=== PATIENT | male | born 1950 | race Caucasian/White ===

== ENCOUNTER → 2017-08-28 | Outpatient (CLI) | payer OTHER ==
[~2017-08-28] MED LIST: ASPIR 8181 MG PO; ASPIRIN325 PO; BRILINTA90 MG PO; CELEXA20 MG PO; FLOMAX0.4 MG PO; GABAPENTIN 100100 MG PO; IRON325 PO; LIPITOR20 MG PO; LOPRESSOR50 PO; METOPROLOL TART25 MG PO; MIDODRINE HCL 55 M1 PO; NITROGLYCERIN0.4 MG PO; NORCO 5-325 TA1 EACH PO; OMEGA-31000 M1 PO; OXYCODONE HCL 55 MG PO; PLAVIX 75 MG TA75 MG PO; PROSCAR 5MG TABL5 MG PO; PROTONIX40 M4 PO
== END ==
LOC: M.RAD 12:09
DX: M19.041 Primary osteoarthritis, right hand (principal); R22.41 Localized swelling, mass and lump, right lower limb

== ENCOUNTER 2018-03-26 10:31 | Emergency (ER) | payer OTHER ==
[~2018-03-26] VITALS: Ht 177.8 cm; Wt 88.5 kg
[2018-03-26] MEDS ORDERED: NORCO 5-325 TA1 EACH PO (11:58)
[2018-03-26 12:13] VITALS: BP 141/72
== END 2018-03-26 12:14 | disposition home or self-care (01) ==
LOC: M.ERS 10:31
DX: M25.571 Pain in right ankle and joints of right foot (principal); I25.10 Atherosclerotic heart disease of native coronary artery without angina pectoris; G47.30 Sleep apnea, unspecified; J44.9 Chronic obstructive pulmonary disease, unspecified; E78.00 Pure hypercholesterolemia, unspecified; Z88.5 Allergy status to narcotic agent; Z90.49 Acquired absence of other specified parts of digestive tract; Z85.830 Personal history of malignant neoplasm of bone; Z95.5 Presence of coronary angioplasty implant and graft

== ENCOUNTER → 2019-06-17 | Outpatient (CLI) | payer OTHER ==
--- NOTE | 2019-06-19 18:23 | SLEEP ---
[address] [address] SLEEP STUDY REPORT Name: THUY OLSON Room: [facility]#: [id number] Admission: 06/17/19 Attend Phys: Yvan Wen DO Discharge: Date of : 52 Report #: [id number] THIS REPORT FOR: //name// CC: Yvan Wen DO This study has been reviewed in its entirety by a board certified sleep specialist DATE OF SERVICE: 06/17/2019 SLEEP STUDY ATTENDING PHYSICIAN: Yvan Wen DO. The patient is a 68-year-old who weighs 189 pounds with a BMI of 27.1. The patient's Talbott score was 8. The patient underwent diagnostic sleep study performed at [facility]. During the night study, the patient spent 456 minutes in bed and slept for 156 minutes with a low sleep efficiency of 34%. Sleep latency was 63 minutes with absent REM sleep. Sleep architecture showed increased stage 1 and stage 2 sleep with normal slow wave and absent REM sleep. During the night study, the patient had 2 obstructive apneas, no mixed apneas, 1 central apnea and 16 hypopneas. The patient's AHI was 7.3 per hour. REM sleep was not seen. The patient's supine AHI was 5.4 per hour. EKG monitoring revealed an average heart rate of 65 beats per minute. No sustained arrhythmias observed. PLMs were seen at an index of 112 per hour and 20 per hour caused EEG arousals. Nocturnal oximetry study revealed an average oxygen saturation of 91% with lowest of 87%. Less than 1 minute was spent in oxygen saturation of less than 88%. Due to low AHI, the patient did not meet the split-night criteria for CPAP initiation. IMPRESSION: 1. Mild sleep apnea-hypopnea syndrome at an AHI of 7.3 per hour. Absence of REM sleep can underestimate the severity of sleep apnea. 2. No clinically significant nocturnal hypoxia. 3. Significantly reduced sleep efficiency of 34%, resulting from sleep onset [place] [address] SLEEP STUDY REPORT Name: THUY OLSON Room: [facility]#: [id number] Admission: 06/17/19 Attend Phys: Yvan Wen DO Discharge: Date of : 52 Report #: [id number] 4. Severe PLMs at an index of 112 per hour and 20 per hour caused EEG arousals. RECOMMENDATIONS: 1. The patient did not meet the split-night criteria for CPAP initiation due to low AHI. 2. Weight loss to the ideal body weight is recommended initially for treatment of the patient's mild sleep apnea. 3. If the patient has comorbid conditions or remains clinically symptomatic, then the patient's sleep apnea can be treated with CPAP versus oral appliance. 4. The patient also has severe PLMs with EEG arousals. The patient should be evaluated for symptoms of restless legs during the day and if present, it can be treated with dopaminergic agonist agents. 5. The patient had severely reduced sleep efficiency. If patient's insomnia is chronic, then it can be treated according to the etiology. <ELECTRONICALLY SIGNED> By: Rey Mckeon MD 06/19/19 1823 1556 1719Aman Eric Mckeon MD /nt
== END ==
LOC: M.SLEEPLAB 19:54
DX: G47.33 Obstructive sleep apnea (adult) (pediatric) (principal); G47.30 Sleep apnea, unspecified; R09.02 Hypoxemia

== ENCOUNTER → 2020-09-18 | Outpatient (CLI) | payer OTHER ==
[~2020-09-18] VITALS: Ht 177.8 cm; Wt 93.0 kg
[2020-09-18] VITALS (10 sets, daily range): BP systolic 97–124; BP diastolic 56–66
[~2020-09-18] MED LIST changes: +ADULT LOW DOSE81 MG PO; -ASPIR 8181 MG PO; +CITALOPRAM HBR40 MG PO; +CLONAZEPAM 0.50.5 M1 PO; +FENOFIBRATE160 MG PO; +FISH OIL 1,001000 M3 PO; +NEURONTIN 300M300 M2 PO; +OXYGEN MISCELL; +PRENA1 TRUE CO1 EACH PO; +REQUIP 1 MG TABL1 M1 PO; +TOPROL XL50 MG PO; +ULTRAM50 MG PO
[2020-09-18 12:40] LABS: HEMATOCRIT 45.8 % (42.0-52.0); HEMOGLOBIN 15.4 gm/dL (14.0-18.0); MCH 32.5 pg (26.0-34.0); MCHC 33.5 g/dL (28.0-37.0); MCV 97.1 fL (80.0-100.0); MPV 8.1 fl. (7.2-11.1); RBC 4.72 mil/uL (4.50-6.00); RDW-CV 15.5 % (10.5-14.5); WBC 11.5 thou/uL (4.0-11.0)
[2020-09-18 12:52] LABS: APTT 27.1 Seconds (25.0-31.3); PROTIME 10.8 Seconds (9.20-11.50)
[2020-09-18 12:53] LABS: ALKALINE PHOSPHATASE 70 U/L (46-116); ANION GAP 6 mmol/L (7-16); BUN 19 mg/dL (7-18); CALCIUM 10.2 mg/dL (8.5-10.1); CHLORIDE 104 mmol/L (98-107); CHOLESTEROL 147 mg/dL (<200); CO2 31 mmol/L (21-32); CREATININE 1.3 mg/dL (0.6-1.3); GLUCOSE 99 mg/dL (70-99); HDL CHOLESTEROL 35 mg/dL (>40); POTASSIUM 4.5 mmol/L (3.5-5.1); SGOT 76 U/L (15-37); SGPT 76 U/L (30-65); SODIUM 141 mmol/L (136-145); TC:HDL 4.2 Ratio (Not establshd); TOTAL BILIRUBIN 0.3 mg/dL (<0.1-1.0); TRIGLYCERIDE 405 mg/dL (<150); VLDL 81 mg/dL (<40)
[2020-09-18 12:54] LABS: LDL CHOLESTEROL ND mg/dL (<100); SERUM ASSESSMENT Clear
--- NOTE | 2020-09-18 15:56 | EKG ---
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: : 1950 Requested By: Helder Joyner Order Number: [id number] MD: Helder Joyner Measurements Intervals [place] Rate: 65 P: 46 WV: 135 QRS: -57 QRSD: 130 T: 46 QT: 448 QTc: 466 Interpretive Statements Sinus rhythm RBBB and LAFB Compared to ECG 11/01/2014 13:50:31 ST (T wave) deviation no longer seen Electronically Signed On 09-18-2020 15:55:58 CDT by Helder Joyner [email or web address] <ELECTRONICALLY SIGNED> By: Helder Joyner MD, [facility] 09/18/20 1555 1302 1302 Helder Joyner MD, [facility] /EPI
--- NOTE | 2020-09-18 17:30 | CARD ---
[address] [address] CARDIAC CATH REPORT Name: THUY OLSON Room: [facility] FridaAngellaJalil#: [id number] Admission: 09/18/20 Attend Phys: Helder Joyner MD, F Discharge: Date of : 52 Report #: [id number] THIS REPORT FOR: cc: Yvan Wen Steve T. DO Blick, David R. MD [facility] ~ APPROVED REPORT Study performed: 09/18/2020 13:31:39 Patient Details Patient Status: Out-Patient Room #: The patient is a 69 year-old male Event Personnel Helder Joyner Qm Consultant, Karmen Lawson RN Utility Maintenance Worker, Jackie Gonzalez RTR Scrub, Malathi Almaraz RTR Monitor Procedures Performed Art Access - R radial artery , Left Heart Cath w/or w/o Coronaries LHC , Hemostasis with Hemoband Indication Chest pain Risk Factors Hypercholesterolemia, Coronary Artery DiseaseHypertension, Tobacco History () Previous Procedures/Diagnoses Previous PCI Admission/Lab Medications/Medications given during procedure Heparin Unfract., Nitroglycerin IA 200 mcg, Verapamil IA 2.5 mg, Heparin IV 5000 units, Nitroglycerin IA 200 mcg, Verapamil IA 2.5 mg Procedure Narrative The patient was brought electively to the Cardiac Catheterization Laboratory and was prepped and draped in a sterile manner. The right wrist was infiltrated with 2% Lidocaine subcutaneous anesthesia. A 6F Slender [place] sheath was inserted into the right radial artery. Coronary angiography was performed [place] [address] CARDIAC CATH REPORT Name: THUY OLSON Davy Room: [facility]#: [id number] Admission: 09/18/20 Attend Phys: Helder Joyner MD, F Discharge: Date of : 52 Report #: [id number] catheters. The right coronary system was accessed and visualized with a 6F JR4 catheter. The left coronary system was accessed and visualized with a 6F JL4 catheter. The left ventricle was accessed and visualized with a 6F Pigtail catheter. Left ventricular/Aortic Valve gradient assessed via catheter pullback. Left ventriculogram was performed in REDD projection. Closure device was deployed with a 6 Fr Radial Vasc-Band Reg 24cm. The patient tolerated the procedure well and there were no complications associated with the procedure. There was no hematoma. Intraoperative Conscious Sedation Sedation start time: 13:54 Case end Time: 14:48 Fentanyl 25 mcg No sedation given. Fluoro Time: 5.4 minutes Dose: DAP 77455 cGycm2 880 mGy Contrast Type and Amount: Visipaque 120 ml Coronary Angiography The patient's coronary anatomy is co- dominant. Diagnostic Cath Left Main 30% distal stenosis LAD 40% mid stenosis Circumflex 0% stenosis OM2 proximally occluded and filled distally by retrograde collaterals from the RCA Right Coronary long area of stenting that started proximally and extended beyond the acute margin of the RCA. 40% restenosis in the mid RCA stent, and 50% restenosis in the distal RCA stent. R PDA 60% mid stenosis Ramus 0% stenosis Left Ventriculography The left ventricular ejection fraction is estimated to be 60-65%. Left ventricular wall motion abnormalities are not present. There is no mitral insufficiency. Hemodynamics The aortic pressure is 110/53 mmHg with a mean of 74 mmHg. The left ventricular pressure is 107/10 mmHg with a mean of mmHg. The left ventricular end diastolic pressure is 16 mmHg. There was no gradient across the aortic valve upon pullback. [place] [address] CARDIAC CATH REPORT Name: HTUY OLSON Room: [facility]#: [id number] Admission: 09/18/20 Attend Phys: Helder Joyner MD, F Discharge: Date of : 52 Report #: [id number] ventricle to the aorta revealed no gradient across the aortic valve. Conclusion 1. 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 Patent stents in the proximal, mid, and distal RCA 3. LVEF 60-65% Recommendations Smoking Cessation <ELECTRONICALLY SIGNED> By: Helder Joyner MD, [facility] 09/18/20 1730 29 1730Dakelly Joyner MD, [facility] /INF
== END | disposition home or self-care (01) ==
LOC: M.CL 09-16 13:00
PROVIDERS: ATTEND Internal Medicine Cardiovascular Disease
DX: R07.9 Chest pain, unspecified (principal); I25.10 Atherosclerotic heart disease of native coronary artery without angina pectoris; I25.82 Chronic total occlusion of coronary artery; I10 Essential (primary) hypertension; E78.00 Pure hypercholesterolemia, unspecified; J44.9 Chronic obstructive pulmonary disease, unspecified; G47.30 Sleep apnea, unspecified; N40.0 Benign prostatic hyperplasia without lower urinary tract symptoms; F17.210 Nicotine dependence, cigarettes, uncomplicated; Z98.890 Other specified postprocedural states; Z79.899 Other long term (current) drug therapy; Z88.6 Allergy status to analgesic agent